=== PATIENT | male | born 2000 | race Caucasian/White ===

== ENCOUNTER 2018-08-10 19:38 | Emergency (ER) | payer OTHER ==
[~2018-08-10] VITALS: Ht 175.3 cm; Wt 61.2 kg
[2018-08-10 20:04] VITALS: BP 127/75
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
--- NOTE | 2018-08-10 21:10 | NUR ---
pt to er bed 1
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
--- NOTE | 2018-08-10 22:00 | NUR ---
PT RESTING COMFORTABLY IN BED. NO S/S OF DISTRESS NOTED
[2018-08-10 22:59] VITALS: BP 116/69
--- NOTE | 2018-08-10 23:00 | NUR ---
Patient discharged with v/s stable. Written and verbal after care instructions given and explained. Patient alert, oriented and verbalized understanding of instructions. Ambulatory with steady gait. All questions addressed prior to discharge. ID band removed. Patient advised to follow up with PMD. Rx of AMOXICILLIN, IBUPROFEN given. Patient educated on indication of medication including possible reaction and side effects. Opportunity to ask questions provided and answered.
== END 2018-08-10 22:40 | disposition home or self-care (01) ==
LOC: MED 19:38
DX: S01.511A Laceration without foreign body of lip, initial encounter (principal); W22.8XXA Striking against or struck by other objects, initial encounter; Y93.89 Activity, other specified; Y92.89 Other specified places as the place of occurrence of the external cause; Y99.8 Other external cause status
CPT/HCPCS: 99283